=== PATIENT | female | born 1990 | race Caucasian/White ===

== ENCOUNTER 2016-08-15 21:53 | Emergency (ER) | payer BC, OTHER ==
[~2016-08-15] VITALS: Ht 167.6 cm; Wt 57.0 kg
[2016-08-15 22:12] VITALS: Ht 167.6 cm; Wt 57.0 kg
[2016-08-15] MEDS ORDERED: AMOX1TAB10 PO (23:08)
[2016-08-15] MEDS ORDERED: CETI10CA PO (23:08)
[2016-08-15] MEDS ORDERED: IBUP-1542 PO (23:08)
--- NOTE | 2016-08-15 23:18 | ERD ---
ER Documentation Chief Complaint Date/Time DATE: 08/15/16 TIME: 23:13 Chief Complaint let ear pain x started today HPI 26-year-old female presents here in emergency department for complaints of left ear pain that started today. Patient described the pain as throbbing pain, 6/10 scale, not better or worse with anything. Patient denies any trauma in the ear. Patient denies any problems with hearing. Patient denies any ear discharge. Patient was prescribed Corticosporin otic drops and azithromycin by primary care doctor, not helping, patient medications were just called in, was not actually seen by her doctor. ROS All systems reviewed and are negative except as per history of present illness. Medications Home Meds Active Scripts Ibuprofen* (Motrin*) 600 Mg Tab, 600 MG PO Q6H Y for PAIN AND OR ELEVATED TEMP, #30 TAB Prov:WALLACE CASTILLO NP 08/15/16 Cetirizine Hcl* (Zyrtec*) 10 Mg Capsule, 10 MG PO DAILY, #30 TAB.CHEW Prov:WALLACE CASTILLO NP 08/15/16 Amoxicillin/Potassium Clav (Amox-Clav 875-125 mg Tablet) 875-125 mg Tab, 1 TAB PO BID for 10 Days, #20 TAB Prov:WALLACE CASTILLO NP 08/15/16 Allergies Allergies: Coded Allergies: No Known Allergy (Unverified , 08/15/16) PMhx/Soc Medical and Surgical Hx: pt denies Surgical Hx Hx Respiratory Disorders: Yes (childhood asthma) Hx Alcohol Use: Yes (socially) Hx Substance Use: No Hx Tobacco Use: No Smoking Status: Current every day smoker FmHx Family History: No coronary disease, No diabetes, No other Physical Exam Vitals Vital Signs Date Time Temp Pulse Resp B/P Pulse Ox O2 Delivery O2 Flow Rate FiO2 08/15/16 22:12 98.2 87 18 130/84 100 Physical Exam GENERAL: The patient is well developed and appropriate for usual state of health, in no apparent distress. HEENT: Atraumatic. Ears: Left ear tympanic membrane noted to be erythematous and bulging. Normal right tympanic membrane, no erythema or bulging. No ear canal swelling. No ear discharge. Nose: normal nasal turbinates, no erythema or swelling. Normal nasal discharge. Throat: oropharynx clear. No tonsillar swelling or tonsillar exudates. No lymphadenopathy. CHEST: Clear to auscultation bilaterally. There are no rales, wheezes or rhonchi. HEART: Regular rate and rhythm. No murmurs, clicks, rubs or gallops. No S3 or S4. ABDOMEN: Soft, nontender and nondistended. Good bowel sounds. No rebound or guarding. No gross peritonitis. No gross organomegaly or masses. No Meadows sign or McBurney point tenderness. BACK: No midline or flank tenderness. EXTREMITIES: Equal pulses bilaterally. There is no peripheral clubbing, cyanosis or edema. No focal swelling or erythema. Full range of motion. Grossly neurovascularly intact. NEURO: Alert and oriented. Cranial nerves 2-12 intact. Motor strength in all 4 extremities with 5/5 strength. Sensation grossly intact. Normal speech and gait. SKIN: There is no apparent rash or petechia. The skin is warm and dry. HEMATOLOGIC AND LYMPHATIC: There is no evidence of excessive bruising or lymphedema. No gross cervical, axillary, or inguinal lymphadenopathy. Procedures/MDM Medical decision making: Patient symptoms is likely consistent with left otitis media. No symptoms of otitis externa or mastoiditis. No foreign body in the ear. No TM perforation. No cerumen impaction. Disposition: Home. Stable. Prescription was given for Augmentin, Zyrtec, ibuprofen, is advised to follow-up with primary care doctor in 2-3 days for reevaluation of symptoms. Patient is advised to avoid using Q-tips to clean the ear. Patient is advised to return to emergency department for any worsening symptoms. Departure Diagnosis: Primary Impression: Otitis media Otitis media type: serous Laterality: left Chronicity: acute Recurrence: not specified as recurrent Qualified Code: H65.02 - Acute serous otitis media of left ear, recurrence not specified Condition: Stable Patient Instructions: Otitis Media, Abx Tx (Adult) WALLACE CASTILLO NP Aug 15, 2016 23:18
== END 2016-08-15 23:19 | disposition home or self-care (01) ==
LOC: FTE 21:53
DX: H65.02 Acute serous otitis media, left ear (principal); F17.210 Nicotine dependence, cigarettes, uncomplicated
CPT/HCPCS: 99283